=== PATIENT | male | born 1945 | race Caucasian/White ===

== ENCOUNTER 2016-06-21 10:03 | Inpatient (IN) | payer MEDICARE, OTHER ==
[~2016-06-21] VITALS: Ht 171.2 cm; Wt 137.9 kg
[2016-07-13] MEDS ORDERED: ATOR40TA16 PO (09:57)
[2016-07-13] MEDS ORDERED: SODI325T PO (09:57)
[2016-07-13] MEDS ORDERED: CALC0.25 PO (09:57)
[2016-07-13] MEDS ORDERED: LISI-519 PO (09:57)
[2016-07-13] MEDS ORDERED: CORE25TA PO (09:57)
[2016-07-13] MEDS ORDERED: ASPI1TAB69 PO (09:57)
[2016-07-14] MEDS ORDERED: metroNIDAZOLE 500 MG INJ 100 ML IV SCH (05:45)
[2016-07-14] MEDS ORDERED: ACETAMINOPHEN 1000 MG/100 ML VIAL IV SCH (05:45)
[2016-07-14] MEDS ORDERED: CHLORHEXIDINE GLUCONATE 2 % 1 PACK (2 CLOTHS) TOPICAL PRN (05:45)
[2016-07-14] MEDS ORDERED: SODIUM CHLORID 0.9% 500 ML IV PRN (05:45)
[2016-07-14] MEDS ORDERED: POVIDONE IODINE 5% (ANTISEPSIS KIT) 4 APPLICATIONS EACH NARE PRN (05:45)
[2016-07-14] MEDS ORDERED: ONDANSETRON HCL 4 MG/2 ML VIAL IV PUSH SCH (05:45)
[2016-07-14] MEDS ORDERED: ceFAZolin 2 GM PREMIX 50 ML IV SCH (05:45)
[2016-07-14] MEDS ORDERED: INSULIN HUMAN REGULAR 1,000 UNITS/10 ML VIAL SQ PRN (05:45)
[2016-07-14] MEDS ORDERED: APREPITANT 40 MG CAP PO SCH (05:45)
[2016-07-14] MEDS ORDERED: LACTATED RINGER'S 1000 ML IV PRN (05:45)
[2016-07-14] MEDS ORDERED: METOPROLOL TARTRATE 25 MG TAB PO PRN (05:45)
[2016-07-14] MEDS ORDERED: SCOPOLAMINE 1.5 MG PATCH T-DERMAL SCH (05:45)
[2016-07-14 08:28] VITALS: BP 122/69; PULSE 56; RESP 18; TEMP 98.1; O2SAT 96
[2016-07-14] MEDS ORDERED: FAMOTIDINE 20 MG/2 ML VIAL ONE (11:17)
[2016-07-14] MEDS ORDERED: ETOMIDATE 20 MG/10 ML VIAL IV PUSH ONE (12:00)
[2016-07-14] MEDS ORDERED: NEOSTIGMINE METHYLSULFATE 10 MG/10 ML VIAL IV PUSH ONE (12:00)
[2016-07-14] MEDS ORDERED: ePHEDrine/NS 25 MG/5 ML SYR IV ONE ×2 (12:00)
[2016-07-14] MEDS ORDERED: LACTATED RINGER'S 1000 ML INJ 2,000 ML IV ONE (12:00)
[2016-07-14] MEDS ORDERED: BUPIVACAINE HCL PF 0.25% 30 ML VIAL INFIL ONE (12:55)
[2016-07-14] MEDS ORDERED: METHYLENE BLUE 100 MG/10 ML VIAL OTHER ONE (13:34)
[2016-07-14] MEDS ORDERED: diphenhydrAMINE HCL ELIXIR 12.5 MG/5 ML CUP PO PRN (14:45)
[2016-07-14] MEDS ORDERED: ONDANSETRON HCL 4 MG/2 ML VIAL IV PRN (14:45)
[2016-07-14] MEDS ORDERED: diphenhydrAMINE HCL 50 MG/ML VIAL IV PRN (14:45)
[2016-07-14] MEDS ORDERED: NALOXONE HCL 0.4 MG/ML AMP IV PRN (14:45)
[2016-07-14] MEDS ORDERED: Post-op Orders (for Pharmacy) MISC OTHER ONE (14:45)
[2016-07-14] MEDS ORDERED: ACETAMINOPHEN 325MG/HYDROcodone 7.5MG/15ML UDC PO PRN (14:45)
[2016-07-14] MEDS ORDERED: SODIUM CHLORIDE 0.9% FLUSH 10 ML FLUSH IV FLUSH PRN (14:45)
[2016-07-14] MEDS ORDERED: ENALAPRILAT 1.25 MG/ML VIAL IV PUSH PRN (14:45)
[2016-07-14] MEDS: 1/2 NS + KCL 20 MEQ INJ 1,000 ML IV SCH ×3 (14:45→23:46)
[2016-07-14] MEDS ORDERED: DO NOT ADM ANY ANTICOAGULANT DRUGS PRN (15:15)
[2016-07-14] MEDS ORDERED: fentaNYL CITRATE 250 MCG/5 ML AMP ONE (15:26)
[2016-07-14] MEDS ORDERED: *morphine SULFATE 8 MG/ML PERIprocedure ONLY ONE ×2 (15:30→15:52)
[2016-07-14] MEDS: RESP: ALBUTEROL 2.5 MG/3 ML NEB (SCH) INH (16:00)
[2016-07-14] MEDS: METOCLOPRAMIDE HCL 10 MG/2 ML VIAL IV PUSH SCH ×2 (16:05→20:09)
[2016-07-14] MEDS: MORPHINE SULFATE 30 MG/30 ML PCA IV SCH (16:56)
[2016-07-14] MEDS: metroNIDAZOLE 500 MG INJ 100 ML IV SCH (18:00)
[2016-07-14] MEDS: ENOXAPARIN SODIUM 40 MG/0.4 ML SYRINGE SQ SCH (20:00)
[2016-07-14] MEDS: SODIUM CHLORIDE 0.9% FLUSH 10 ML FLUSH IV FLUSH SCH (20:09)
[2016-07-14] MEDS: PCA - TOTAL MG MORPHINE DELIVERED PER SHIFT SCH (20:12)
[2016-07-14 20:26] VITALS: BP 131/67; PULSE 80; RESP 18; TEMP 97.8; O2SAT 96
[2016-07-14 23:51] VITALS: BP 115/57; PULSE 93; RESP 18; TEMP 97.5; O2SAT 98
[2016-07-15] VITALS (10 sets, daily range): BP systolic 104–126; BP diastolic 53–60; PULSE 78–86; RESP 18–20; TEMP 97.1–98.6; O2SAT 93–97
[2016-07-15] MEDS: RESP: ALBUTEROL 2.5 MG/3 ML NEB (SCH) INH ×7 (00:55→23:19)
[2016-07-15] MEDS: metroNIDAZOLE 500 MG INJ 100 ML IV SCH ×2 (01:59→09:13)
[2016-07-15] MEDS: 1/2 NS + KCL 20 MEQ INJ 1,000 ML IV SCH ×6 (04:05→21:50)
[2016-07-15] MEDS: METOCLOPRAMIDE HCL 10 MG/2 ML VIAL IV PUSH SCH ×2 (05:24→09:13)
[2016-07-15] MEDS: PCA - TOTAL MG MORPHINE DELIVERED PER SHIFT SCH ×3 (05:27→21:48)
[2016-07-15 05:46] LABS: AUTOMATED NEUTROPHIL # 8.7 TH/MM3 (1.8-7.7); BASOPHIL % 0.2 % (0.0-2.0); EOSINOPHIL # 0.2 TH/MM3 (0-0.4); EOSINOPHIL % 1.6 % (0.0-4.0); HEMATOCRIT 32.8 % (39.0-51.0); HEMO FLAGS DIFF FINAL; LYMPH % 13.3 % (9.0-44.0); LYMPHOCYTE # 1.6 TH/MM3 (1.0-4.8); MEAN CELL VOLUME 97.9 FL (80.0-100.0); MEAN CORPUSCULAR HEMOGLOBIN 33.2 PG (27.0-34.0); MEAN CORPUSCULAR HGB CONC 33.9 % (32.0-36.0); MONO % 11.1 % (0.0-8.0); NEUT % 73.8 % (16.0-70.0); PLATELET COUNT 115 TH/MM3 (150-450); RED BLOOD COUNT 3.35 MIL/MM3 (4.50-5.90); WHITE BLOOD COUNT 11.8 TH/MM3 (4.0-11.0)
[2016-07-15 05:56] LABS: BICARBONATE 25.6 MEQ/L (21.0-32.0); MAGNESIUM 2.3 MG/DL (1.5-2.5); POTASSIUM 5.8 MEQ/L (3.5-5.1)
[2016-07-15] MEDS: SODIUM CHLORIDE 0.9% FLUSH 10 ML FLUSH IV FLUSH SCH ×2 (09:00→21:47)
[2016-07-15] MEDS: PANTOPRAZOLE SOD 40 MG DELAYED RELEASE TAB PO SCH (09:12)
--- NOTE | 2016-07-15 09:17 | HHI.PR ---
Subjective Subjective Notes 71yo male POD#1 VSG Sitting up in chair Voices no complaints Objective Vitals/I&O Vital Signs Date Time Temp Pulse Resp B/P Pulse Ox O2 Delivery O2 Flow Rate FiO2 07/15/16 08:58 96 21 07/15/16 05:27 17 07/15/16 04:52 Nasal Cannula 2.00 07/15/16 03:55 98.6 86 104/53 Labs Laboratory Tests Test 07/15/16 04:56 White Blood Count 11.8 Red Blood Count 3.35 Hemoglobin 11.1 Hematocrit 32.8 Mean Corpuscular Volume 97.9 Mean Corpuscular Hemoglobin 33.2 Mean Corpuscular Hemoglobin 33.9 Concent Red Cell Distribution Width 13.0 Platelet Count 115 Mean Platelet Volume 9.1 Neutrophils (%) (Auto) 73.8 Lymphocytes (%) (Auto) 13.3 Monocytes (%) (Auto) 11.1 Eosinophils (%) (Auto) 1.6 Basophils (%) (Auto) 0.2 Neutrophils # (Auto) 8.7 Lymphocytes # (Auto) 1.6 Monocytes # (Auto) 1.3 Eosinophils # (Auto) 0.2 Basophils # (Auto) 0.0 CBC Comment DIFF FINAL Differential Comment Sodium Level 138 Potassium Level 5.8 Chloride Level 106 Carbon Dioxide Level 25.6 Anion Gap 6 Blood Urea Nitrogen 48 Creatinine 1.98 Estimat Glomerular Filtration 34 Rate Random Glucose 106 Calcium Level 8.5 Magnesium Level 2.3 Cardiovascular: Regular Lungs: Clear Abdomen: Post-op tenderness Extremities: Perfused Wound Wound : Wound Location: Abdomen Appearance: Clean & Dry A/P Assessment and Plan Continue to increase fluids as tolerated Frequent ambulation D/C juarez today, patient will need to straight cath himself The exam, history, and the medical decision-making described in the above note were completed with the assistance of the mid-level provider. I reviewed and agree with the findings presented. I attest that I had a [id number] encounter with the patient on the same day, and personally performed and documented my assessment and findings in the medical record. Discharge Planning D/C home tomorrow Attending Statement Patient c/o bilateral ankle pain limiting ambulation. He has mild swelling. Has had similar issues in the past but not as severe. Will hold dc for now, consult PT for eval and tx, possible dc home tomorrow if improved. The exam, history, and the medical decision-making described in the above note were completed with the assistance of the mid-level provider. I reviewed and agree with the findings presented. I attest that I had a [id number] encounter with the patient on the same day, and personally performed and documented my assessment and findings in the medical record. Kael Calvo Jul 15, 2016 09:17 Glenroy Laws MD Jul 16, 2016 12:07 Deepak Warren MD Jul 21, 2016 13:03
[2016-07-15] MEDS ORDERED: METOCLOPRAMIDE HCL 10 MG/2 ML VIAL IV PUSH PRN (14:45)
[2016-07-16] VITALS: BP 122/55; PULSE 98; RESP 20; TEMP 99.4; O2SAT 98
[2016-07-16] MEDS: MORPHINE SULFATE 30 MG/30 ML PCA IV SCH (00:33)
[2016-07-16] MEDS: RESP: ALBUTEROL 2.5 MG/3 ML NEB (SCH) INH ×3 (02:48→11:42)
[2016-07-16] MEDS: PCA - TOTAL MG MORPHINE DELIVERED PER SHIFT SCH ×3 (06:00→22:00)
[2016-07-16 06:22] LABS: BICARBONATE 24.2 MEQ/L (21.0-32.0)
[2016-07-16] MEDS: 1/2 NS + KCL 20 MEQ INJ 1,000 ML IV SCH ×4 (06:45→22:45)
[2016-07-16] MEDS: PANTOPRAZOLE SOD 40 MG DELAYED RELEASE TAB PO SCH (07:56)
[2016-07-16] MEDS: SODIUM CHLORIDE 0.9% FLUSH 10 ML FLUSH IV FLUSH SCH ×2 (07:56→21:00)
[2016-07-16] MEDS: ACETAMINOPHEN 325MG/HYDROcodone 7.5MG/15ML UDC PO PRN ×3 (07:59→22:42)
[2016-07-16 08:00] VITALS: BP 106/53; PULSE 88; RESP 24; TEMP 99.3; O2SAT 92
[2016-07-16 08:30] VITALS: O2SAT 92
[2016-07-16 12:00] VITALS: BP 110/56; PULSE 86; RESP 16; TEMP 96.7; O2SAT 95
[2016-07-16 16:00] VITALS: BP 107/58; PULSE 88; RESP 20; TEMP 99.3; O2SAT 94
[2016-07-16 20:00] VITALS: BP 91/44; PULSE 92; RESP 22; TEMP 100.8; O2SAT 97
[2016-07-16] MEDS: ENOXAPARIN SODIUM 40 MG/0.4 ML SYRINGE SQ SCH (22:42)
[2016-07-17] VITALS: BP 127/59; PULSE 86; RESP 20; TEMP 98.9; O2SAT 95
[2016-07-17] MEDS: PCA - TOTAL MG MORPHINE DELIVERED PER SHIFT SCH ×2 (04:29→14:00)
[2016-07-17] MEDS: 1/2 NS + KCL 20 MEQ INJ 1,000 ML IV SCH ×5 (04:29→20:24)
[2016-07-17 08:00] VITALS: BP 130/60; PULSE 81; RESP 20; TEMP 98.6; O2SAT 95
[2016-07-17] MEDS: ACETAMINOPHEN 325MG/HYDROcodone 7.5MG/15ML UDC PO PRN ×3 (08:30→20:23)
[2016-07-17] MEDS: SODIUM CHLORIDE 0.9% FLUSH 10 ML FLUSH IV FLUSH SCH ×2 (08:30→20:23)
[2016-07-17] MEDS: PANTOPRAZOLE SOD 40 MG DELAYED RELEASE TAB PO SCH (08:30)
[2016-07-17 10:53] VITALS: O2SAT 97
[2016-07-17 12:00] VITALS: BP 123/58; PULSE 78; RESP 20; TEMP 97.4; O2SAT 95
--- NOTE | 2016-07-17 15:28 | HHI.PR ---
Subjective Subjective Notes The patient is still unable to walk other than diffuse small steps in the room. He states that he has had increasing pain and swelling in both lower extremities particularly around the ankles. His flexion and extension are limited by pain. Other than that he has no complaints. He is tolerating his bariatric liquid diet without problem and denies any abdominal pain. Objective Vitals/I&O Vital Signs Date Time Temp Pulse Resp B/P Pulse Ox O2 Delivery O2 Flow Rate FiO2 07/17/16 12:00 97.4 78 20 123/58 95 07/15/16 15:21 21 07/15/16 04:52 Nasal Cannula 2.00 Cardiovascular: Regular Lungs: Clear Abdomen: Non-distended, Non-tender, BS normal Narrative Exam Both ankles are somewhat is edematous and notably tender to even passive motion. A/P Assessment and Plan Impression status post laparoscopic sleeve gastrectomy; he is doing extremely well except for pain in his ankles. Plan bilateral MR scans of the ankles will be ordered to further evaluate the situation. Mathew Harris MD Jul 17, 2016 15:28
[2016-07-17 16:00] VITALS: BP 116/61; PULSE 81; RESP 19; TEMP 97.7; O2SAT 96
--- NOTE | 2016-07-17 17:04 | RADRPT ---
EXAM DATE/TIME: 07/17/2016 16:17 [facility] COMPARISON: No previous studies available for comparison. INDICATIONS : Bilateral ankle pain without specific injury or cause. MEDICAL HISTORY : Carcinoma, prostate. Cardiovascular disease SURGICAL HISTORY : Gastric bypass. Lumbar laminectomy. ENCOUNTER: Subsequent ACUITY: 2 weeks PAIN SCORE: 3/10 LOCATION: Bilateral ankles. TECHNIQUE: Multiplanar, multisequence MRI examination was performed without contrast. FINDINGS: BONE/CARTILAGE: Bone marrow signal is homogeneous. Articular cartilage signal is within normal limits. TENDONS: All of the visualized tendons are intact. LIGAMENTS: The lateral and medial ligament complexes are intact. MISCELLANEOUS: There is a moderate-sized ankle effusion which extends into the subtalar joint and posteriorly along the flexor digitorum muscle. There is moderate soft tissue swelling about the medial and lateral asp ect of the ankle in the subcutaneous tissues. No deep soft tissue swelling seen. The plantar aponeu rosis is intact. The tarsal tunnel is within normal limits. CONCLUSION: 1. Moderate size ankle effusion. Subcutaneous soft tissue swelling both medial and lateral. 2. Osseous structures and tendons are intact. Karan Flores MD on July 17, 2016 at 16:49 Board Certified Radiologist. This report was verified electronically.
--- NOTE | 2016-07-17 17:35 | RADRPT ---
EXAM DATE/TIME: 07/17/2016 16:32 [facility] COMPARISON: MRI ANKLE RIGHT W/O CONTRAST, July 17, 2016, 16:17. INDICATIONS : Bilateral ankle pain without specific injury or cause. MEDICAL HISTORY : Carcinoma, prostate. Cardiovascular disease SURGICAL HISTORY : Gastric bypass. Lumbar laminectomy. ENCOUNTER: Subsequent ACUITY: 2 weeks PAIN SCORE: 3/10 LOCATION: Bilateral ankle. TECHNIQUE: Multiplanar, multisequence MRI examination was performed without contrast. FINDINGS: BONE/CARTILAGE: There is abnormal signal in the superior medial angle of the talus with disruption of the articular s urface and a 3 mm depression of the articular surface. There is a rounded area of T1 and T2 prolonga tion which measures 6 mm suggestive of a free fragment. This appearance is characteristic of osteoch ondritis desiccans. There is moderate edema in the marrow of the lateral talus which suggests that th ere is acute bony injury or contusion of the marrow. TENDONS: All of the visualized tendons are intact. LIGAMENTS: The lateral and medial ligament complexes are intact. MISCELLANEOUS: There is a moderate size ankle effusion which extends into the subtalar joint and causes mild distent ion of both the anterior and posterior joint space. There is tracking of fluid along the flexor digi torum muscle and a 2nd area of extension surrounding the flexor digitorum tendon in the mid foot (no abnormal signal with in the tendon) The plantar aponeurosis is intact. The tarsal tunnel is within n ormal limits. There is moderate subcutaneous soft tissue swelling about the medial and lateral aspec t of the ankle. CONCLUSION: 1. 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 The desiccated fragment is displaced inferior. 2. Moderate size joint effusion and prominent subcutaneous soft tissue swelling about the medial and lateral aspect of the ankle. 3. Prominent fluid tracking along the perineal tendons suggesting sheeba-tendinosis. No abnormal signa l with inthe substance of the longus or brevis. This case has been discussed with Dr. Mathew Harris. Karan Flores MD on July 17, 2016 at 17:11 Board Certified Radiologist. This report was verified electronically.
[2016-07-17 20:00] VITALS: BP 126/60; PULSE 81; RESP 17; TEMP 99.3; O2SAT 95
[2016-07-17] MEDS: ENOXAPARIN SODIUM 40 MG/0.4 ML SYRINGE SQ SCH (20:23)
[2016-07-18] VITALS: BP 116/70; PULSE 85; RESP 17; TEMP 99.1; O2SAT 95
[2016-07-18] MEDS: ACETAMINOPHEN 325MG/HYDROcodone 7.5MG/15ML UDC PO PRN ×4 (03:21→22:04)
[2016-07-18] MEDS: 1/2 NS + KCL 20 MEQ INJ 1,000 ML IV SCH ×4 (04:25→20:41)
[2016-07-18] MEDS: SODIUM CHLORIDE 0.9% FLUSH 10 ML FLUSH IV FLUSH SCH ×2 (07:31→20:41)
[2016-07-18] MEDS: PANTOPRAZOLE SOD 40 MG DELAYED RELEASE TAB PO SCH (07:31)
[2016-07-18 08:00] VITALS: BP 127/61; PULSE 72; RESP 20; TEMP 97.1; O2SAT 95
--- NOTE | 2016-07-18 09:43 | PD.CONS ---
History of Present Illness Service Podiatry Consult Requested By Dr Harris Reason for Consult Bilateral ankle pain Primary Care Physician Louis Diaz M.D. Diagnoses: History of Present Illness Patient relates history of bilateral ankle pain for about 3 days. His girlfriend told the nurse he takes about 5 tylenol per day so he may have had some pain longer but did not know about it. He says the pain was increased following his procedure, and that he does usually do some amount of walking around daily and has history of arthritis in his hands, but has never had an issue that he is aware of anywhere else in the body. He says yesterday the pain was a 9 and today is a 4 out of 10, equal in both ankles with some swelling. He says the swelling has also significantly decreased since yesterday. Denies history of gout. Past Family Social History Allergies: Coded Allergies: Propofol (Verified Adverse Reaction, Severe, Confusion, 07/14/16) pt states this med gave him nightmares for a week after surgery, Past Medical History 1. Hypertension. 2. Morbid obesity. 3. Coronary artery disease. 4. Left lower extremity deep venous thrombosis back in May. 5. Hyperlipidemia. 6. Benign prostatic hypertrophy. Past Surgical History History of L2-L4 laminectomy. Epidural hematoma evacuation by Dr. Cho recently. Active Ordered Medications Current Medications Medications (Trade) Dose Ordered Sig/Dulce Route Start Time Stop Time Status Last Admin Potassium Chloride/Sodium Chloride 1,000 ml @ 125 mls/hr Q8H IV 07/14/16 14:45 07/15/16 21:50 (1/2 NS + KCl 20 Meq Inj) 1,000 ml @ 75 mls/hr [id number] IV 07/14/16 14:45 07/15/16 21:50 (NS Flush) 2 ml UNSCH PRN IV FLUSH 07/14/16 14:45 (NS Flush) 2 ml BID IV FLUSH 07/14/16 21:00 07/18/16 07:31 (Protonix) 40 mg DAILY PO 07/15/16 09:00 07/18/16 07:31 (Lovenox Inj) 40 mg Q24H SQ 07/14/16 20:00 07/17/16 20:23 (Hycet 325-7.5 Mg Liq) 10 ml Q6H PRN PO 07/14/16 14:45 (Hycet 325-7.5 Mg Liq) 15 ml Q6H PRN PO 07/14/16 14:45 07/18/16 09:34 (Benadryl Inj) 25 mg Q6H PRN IV 07/14/16 14:45 (Benadryl Liq) 25 mg Q6H PRN PO 07/14/16 14:45 (Reglan Inj) 10 mg Q6H PRN IV PUSH 07/15/16 14:45 (Zofran Inj) 4 mg Q6H PRN IV 07/14/16 14:45 (Vasotec Inj) 1.25 mg Q6H PRN IV PUSH 07/14/16 14:45 Family History Heart disease- mom Social History denies Physical Exam Vital Signs Vital Signs Date Time Temp Pulse Resp B/P Pulse Ox O2 Delivery O2 Flow Rate FiO2 07/18/16 08:00 97.1 72 20 127/61 95 07/18/16 00:00 99.1 85 17 116/70 95 07/17/16 20:00 99.3 81 17 126/60 95 07/17/16 16:00 97.7 81 19 116/61 96 07/17/16 15:06 18 07/17/16 14:00 18 07/17/16 12:00 97.4 78 20 123/58 95 07/17/16 10:53 97 21 Physical Exam Palpable pedal pulses. Edema, nonpitting bilaterally. Warm skin temperature. Brisk capillary refill to digits. Minimal pain with passive ROM to bilateral ankle joints. No crepitus noted. No open lesions noted. Result Diagram: 07/15/16 0456 07/16/16 0520 Imaging Last Impressions Ankle MRI 07/17/16 0000 Signed Impressions: Service Date/Time: Sunday, July 17, 2016 16:17 - CONCLUSION: 1. Moderate size ankle effusion. Subcutaneous soft tissue swelling both medial and lateral. 2. Osseous structures and tendons are intact. 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 Discussed that oral steroid vs IV steroid would not be recommended in light of renal issues. Discussed injectable intraarticular steroid if inflammation persists and to follow up in clinic in 7-10 days to assess pain. Will discuss bracing options if pain is recurring. Decreased physical activity recommended in the meantime based on pain level. Ordered Uric acid, but do not have to await results before d/c. Can discuss results upon follow up as outpatient. Ok to d/c from podiatry standpoint and follow up outpatient 7-10 days in [place] or [place] office, based on availability and convenience for patient. Guicho Ashley DPM Jul 18, 2016 09:43
[2016-07-18 12:00] VITALS: BP 92/59; PULSE 75; RESP 17; TEMP 97.3; O2SAT 95
--- NOTE | 2016-07-18 13:27 | HHI.PR ---
Subjective Subjective Notes The patient feels approximately 50% better than he did yesterday. He is able to move a little bit more freely although he still has significant pain in both ankles. He has somewhat diminished pain with active flexion and extension that he did yesterday. He has no GI complaints, is having large amounts of flatus without bowel movement at present. He is tolerating his postoperative bariatric liquid diet without problem. He has no pain in his abdomen. Objective Vitals/I&O Vital Signs Date Time Temp Pulse Resp B/P Pulse Ox O2 Delivery O2 Flow Rate FiO2 07/18/16 12:00 97.3 75 17 92/59 95 07/17/16 10:53 21 07/15/16 04:52 Nasal Cannula 2.00 Labs Laboratory Tests Test 07/18/16 11:02 Uric Acid 9.7 Radiology Bilateral MR scans of the ankles showed effusions in both joints with edema extending proximally. The left was worse than the right and there was the possibility of osteochondritis dissecans or raised by the radiologist. There was no evidence of acute fracture. Cardiovascular: Regular Lungs: Clear Abdomen: Non-distended, Non-tender, Post-op tenderness, BS normal Narrative Exam Both ankles remain somewhat edematous, though less so than yesterday. The patient obviously has less pain upon passive and active motion of the ankles. A/P Assessment and Plan Impression status post laparoscopic sleeve gastrectomy; he is doing very well. MR scans yesterday showed bilateral ankle effusions. Evaluation by Dr. Medina of podiatry was noted and appreciated. It appears that he has some component of gout with an elevated uric acid. The patient would like to stay until tomorrow. He should be able to be discharged tomorrow. He will have follow-up in the [facility] approximately a week after discharge. Mathew Harris MD Jul 18, 2016 13:27
[2016-07-18 16:00] VITALS: BP 154/67; PULSE 73; RESP 18; TEMP 97.6; O2SAT 95
[2016-07-18 20:00] VITALS: BP 130/67; PULSE 70; RESP 17; TEMP 96; O2SAT 97
[2016-07-18] MEDS: ENOXAPARIN SODIUM 40 MG/0.4 ML SYRINGE SQ SCH (20:41)
[2016-07-19] VITALS: BP 126/68; PULSE 82; RESP 17; TEMP 97.4; O2SAT 96
[2016-07-19] MEDS: 1/2 NS + KCL 20 MEQ INJ 1,000 ML IV SCH ×2 (01:15→04:32)
[2016-07-19] MEDS: ACETAMINOPHEN 325MG/HYDROcodone 7.5MG/15ML UDC PO PRN ×3 (04:30→16:59)
[2016-07-19 08:00] VITALS: BP 120/57; PULSE 79; RESP 19; TEMP 97.6; O2SAT 95
[2016-07-19] MEDS: PANTOPRAZOLE SOD 40 MG DELAYED RELEASE TAB PO SCH (08:36)
[2016-07-19] MEDS: SODIUM CHLORIDE 0.9% FLUSH 10 ML FLUSH IV FLUSH SCH (08:37)
[2016-07-19] MEDS ORDERED: COLCHICINE 0.6 MG TAB PO SCH (11:41)
--- NOTE | 2016-07-19 11:41 | HHI.PR ---
Subjective Subjective Notes Patient sitting up in chair with feet elevated. He states is ankle pain is 9/10 bilaterally today and that he 'can't even walk on them'. He states the pain is aggravated when he flexes the ankle or bears weight. From a bariatric surgery standpoint he is doing well. He is tolerating his liquid diet and passing a large amount of flatus. He has not had a bowel movement yet and denies any nausea, vomiting, or abdominal pain. Objective Vitals/I&O Vital Signs Date Time Temp Pulse Resp B/P Pulse Ox O2 Delivery O2 Flow Rate FiO2 07/19/16 08:00 97.6 79 19 120/57 95 07/17/16 10:53 21 Radiology Bilateral MR scans of the ankles showed effusions in both joints with edema extending proximally. The left was worse than the right and there was the possibility of osteochondritis dissecans or raised by the radiologist. There was no evidence of acute fracture. Cardiovascular: Regular Lungs: Clear Abdomen: Non-tender Narrative Exam Bilateral ankles with +1-2 edema. Pedal pulses +2 bilaterally. No erythema. Pain is elicited with dorsiflexion and plantar flexion. Wound Wound : Wound Location: Abdomen Appearance: Clean & Dry A/P Assessment and Plan Discussed case with Dr. Miranda. She was concerned about using IV steroids with he renal impairment. Discussed the use of a low dose of colchicine for pain control until he can follow up in her office for intraarticular steroid to manage inflammation. Will consult case management for rehab placement Continue with bariatric diet The exam, history, and the medical decision-making described in the above note were completed with the assistance of the mid-level provider. I reviewed and agree with the findings presented. I attest that I had a [id number] encounter with the patient on the same day, and personally performed and documented my assessment and findings in the medical record. Discharge Planning D/C to home of SNF today if placement possible Kael Calvo Jul 19, 2016 11:41 Deepak Warren MD Jul 21, 2016 13:04
[2016-07-19] MEDS ORDERED: COLC1TAB15 PO (11:46)
[2016-07-19 12:00] VITALS: BP 144/61; PULSE 72; RESP 19; TEMP 97.3; O2SAT 96
[2016-07-19] MEDS ORDERED: PILL SPLITTER OTHER PRN (12:00)
[2016-07-19] MEDS ORDERED: WHEEMIS3 (12:17)
--- NOTE | 2016-07-30 12:49 | MP ---
cc: WILMA WARREN DATE OF SURGERY: 07/14/2016 DATE OF : 1945 PREOPERATIVE DIAGNOSIS Morbid obesity with a BMI of 47, complicated by essential hypertension, hypercholesterolemia and obstructive sleep apnea. POSTOPERATIVE DIAGNOSIS Morbid obesity with a BMI of 47, complicated by essential hypertension, hypercholesterolemia and obstructive sleep apnea. PROCEDURE 1. Laparoscopic vertical sleeve gastrectomy over a 36-[place] ViSiGi bougie. 2. Laparoscopic lysis of adhesions. SURGEON Dr. Wilma Warren PAINT BOOTH OPERATOR SURGEON Dr. Dayron Mcfarland's assistance was necessary for this procedure due to the complexity of the procedure. Dr. Mcfarland was required for retraction and manipulation of the bowel and stomach. Dr. Mcfarland was present for the entire case. The registered dental assistant rda provided by the hospital was used at the back table during the procedure. FINDINGS Adhesions in the upper abdomen of small bowel. SPECIMENS None. COMPLICATIONS None. OPERATION The patient was brought to the operating room and placed on the operating table in the supine position, bilateral sequential inflation device placed on the lower extremities. General anesthesia was instituted. Antibiotics was initiated. The abdomen was prepped and draped sterilely. A point 15 cm distal to the xiphoid in the midline was anesthetized with 0.25% Marcaine with epinephrine. A skin incision was made. A 5 mm Optiview port was placed under direct vision and a pneumoperitoneum created. Under direct vision three 5 mm left upper quadrant, one 15 mm right upper quadrant and one 5 mm right upper quadrant ports were placed. Prior to placement of all ports the skin and peritoneum were anesthetized with 0.25% Marcaine with epinephrine. On entering the abdominal cavity there were adhesions located in the upper abdomen. These were taken down using sharp and blunt dissection. Care was taken not to injure the small bowel or stomach during the dissection. The patient was placed in reverse Trendelenburg position left side up. A Monica-Flex retractor was placed. The left lobe of the liver was retracted. The vasculature along the greater curvature of the stomach was using a Harmonic scalpel starting a distance 5 cm proximal to the pylorus and carried towards the angle of His. The angle of His was taken down bluntly. Posterior ligamentous attachments were sharply . A 36-[place] ViSiGi bougie was placed at the start of the case and placed on suction. Division of the stomach started 5 cm proximal to the pylorus and carried towards the angle of His to completely excise approximately 80% of the stomach. This was performed using an [place] Flex stapler at the pylorus. The first firing was with a black load, followed by a green load and four gold loads. All staple loads were reinforced with SeamGuard. A distance of 2 cm was left from the angle incisura and the staple line and a distance of 1 cm left from the GE junction and the staple line. The pylorus was then occluded, methylene blue tinged saline was instilled. There was no evidence of extravasation. The gastrocolic ligament was then sutured to the posterior leaflet of the SeamGuard using 2-0 Vicryl suture in a running manner. Bleeding points were controlled with Evicel. The excised stomach was removed from the peritoneal cavity through the 15 mm port site in an Endopouch. The fascia at the 15 mm port site was approximated with 0 Vicryl suture. The CO2 was then released. All ports were removed. All skin incisions were closed with 4-0 Monocryl. The abdominal wall was cleaned and a sterile dressing placed. The patient was awakened and taken to the recovery room. MD ROSALIE Holliday/CONNER /11:19 AM /12:44 PM [id number]
== END 2016-07-19 18:06 | DRG 621 ==
LOC: HSDI 07-14 05:17 → N07B 07-14 19:18
PROVIDERS: ADMIT Surgery; ATTEND Surgery
PROC: 0DB64Z3 Excision of Stomach, Percutaneous Endoscopic Approach, Vertical (ICD-10-PCS; principal; 2016-07-14 12:11)
DX: E66.01 Morbid (severe) obesity due to excess calories (principal); I10 Essential (primary) hypertension; Z68.42 Body mass index [BMI] 45.0-49.9, adult; E78.00 Pure hypercholesterolemia, unspecified; M10.9 Gout, unspecified; I25.10 Atherosclerotic heart disease of native coronary artery without angina pectoris; G47.33 Obstructive sleep apnea (adult) (pediatric); E78.5 Hyperlipidemia, unspecified; Z86.718 Personal history of other venous thrombosis and embolism; N40.0 Benign prostatic hyperplasia without lower urinary tract symptoms; M25.572 Pain in left ankle and joints of left foot; M25.571 Pain in right ankle and joints of right foot
CPT/HCPCS: 73721; 80048; 83735; 84550; 85025; 94150; 94640; J0131; J0690; J1650; J2270; J2405; J2710; J2765; J3010; J7120; J7613; J8501